=== PATIENT | male | born 1960 | race Caucasian/White ===

== ENCOUNTER 2017-04-06 08:21 | Emergency (ER) | payer OTHER ==
[~2017-04-06 08:21] MED LIST: ASPI-630 PO; FISH12002 PO; humalog
[2017-04-06] MEDS ORDERED: ONDANSETRON PF 4 MG/2 ML VIAL. ONE (08:30)
[2017-04-06] MEDS ORDERED: MORPHINE SULFATE 4 MG/ML DISP.SYRIN. ONE (08:32)
[2017-04-06] MEDS ORDERED: IPRATRPIUM/ALBUTEROL 0.5/2.5MG 3 ML NEBU. ONE (08:32)
[2017-04-06] MEDS: NITROGLYCERIN SUBLINGUAL 0.4 MG BOTTLE OF 25. SL PRN ×3 (08:33→08:57)
[2017-04-06] MEDS ORDERED: methylPREDNISolone SOD SUCC PF 125 MG/2 ML VIAL. ONE (08:33)
[2017-04-06] MEDS ORDERED: ASPIRIN 81 MG TAB.CHEW ONE (08:34)
[2017-04-06] MEDS: MORPHINE SULFATE 4 MG/ML DISP.SYRIN. IV/SQ PRN ×2 (08:35→09:05)
[2017-04-06 08:47] LABS: BASO # 0.1 x10^3/uL (0.0-0.2); BASO % 1 % (0-3); EOS # 0.3 x10^3/uL (0.0-0.7); EOS % 2 % (0-3); HEMATOCRIT 46.9 % (39.0-53.0); HEMOGLOBIN 15.8 g/dL (13.0-17.5); LYMPH # 5.1 x10^3/uL (1.0-4.8); LYMPH % 41 % (24-48); MEAN CORPUSCULAR HEMOGLOBIN 30 pg (25-35); MEAN CORPUSCULAR HGB CONC 34 g/dL (31-37); MEAN CORPUSCULAR VOLUME 88 fL (79-100); MONO # 1.1 x10^3/uL (0.0-1.1); MONO % 9 % (0-9); NEUT % 48 % (31-73); PLATELET COUNT 214 x10^3/uL (140-400); RED CELL DISTRIBUTION WIDTH 14.5 % (11.5-14.5); WHITE BLOOD COUNT 12.5 x10^3/uL (4.0-11.0)
[2017-04-06] MEDS ORDERED: ONDANSETRON PF 4 MG/2 ML VIAL. IV ONE (09:00)
[2017-04-06] MEDS ORDERED: methylPREDNISolone SOD SUCC PF 125 MG/2 ML VIAL. IV ONE (09:00)
[2017-04-06] MEDS ORDERED: ASPIRIN 81 MG TAB.CHEW PO ONE (09:00)
[2017-04-06] MEDS ORDERED: IPRATRPIUM/ALBUTEROL 0.5/2.5MG 3 ML NEBU. NEB ONE (09:00)
[2017-04-06] MEDS ORDERED: LORazepam 2 MG/ML VIAL IV ONE (09:00)
--- NOTE | 2017-04-06 09:00 | PHYS DOC ---
General Chief Complaint: CHEST PAIN Stated Complaint: CHEST PAIN Time Seen by MD: 08:31 Source: patient, old records Exam Limitations: other (vague historian) Problems: History of Present Illness Initial Comments Pt is 56/M h/o IDDM and CAD to ED POV with chest pain complaints. Pt states he was awakened approximately 0740 this morning with upper back and neck "cramping," diaphoresis, nausea, chest tightness and dyspnea. Although he's nauseous, he denies emesis/diarrhea or other GI symptoms. No specific chest pain complaints, no exacerbating or relieving factors noted. No travel or bad food exposure, no recent cough/fever/illness, pt went to bed feeling well. No relief with NTG SL x 3 in ED, pt did have improvement/resolution of symptoms with morphine 4mg IV x 2 and lorazepam 0.5mg IV Pt follows with ear specialist at [facility], doesn't know last HbA1c Pt had cardiac stent placed approximately 10 years ago at [facility], cannot recall name of doctor or last cardiac testing. No PCP Averages 2PPD cigarettes. Pt is very anxious on arrival and vague historian. Timing/Duration: 1 hour Severity: severe Associated Symptoms: diaphoresis, malaise, nausea/vomiting, shortness of breath , weakness Allergies: Coded Allergies: No Known Drug Allergies (Unverified , 01/09/16) Past Medical History Medical History: diabetes, heart disease, high cholesterol Surgical History: appendectomy (cardiac stent 10 years ago) Social History Smoker: cigarettes Alcohol: occasionally Drugs: none Review of Systems Constitutional: see HPI, denies fever Respiratory: denies cough, denies orthopnea, shortness of breath, wheezing Cardiovascular: denies chest pain, denies palpitations, denies syncope Gastrointestinal: denies abdominal pain, denies diarrhea, nausea, denies vomiting Genitourinary: denies dysuria, denies frequency, denies hematuria Musculoskeletal: see HPI Physical Exam General Appearance: WD/WN, severe distress Eyes: bilateral eye normal inspection, bilateral eye PERRL, bilateral eye EOMI Ear, Nose, Throat: hearing grossly normal, normal ENT inspection, normal pharynx Neck: non-tender, supple Respiratory: chest non-tender, no respiratory distress, other (coarse BS w/ wheezes diffusely, good air movement) Cardiovascular: normal peripheral pulses, bradycardia Gastrointestinal: normal bowel sounds, non tender, soft Back: no CVA tenderness, no vertebral tenderness Extremities: non-tender, normal inspection, no pedal edema Neurologic/Psychiatric: 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 He is more relaxed, more calm, says he is starting to feel better. SO at bedside, she advises that pt had 1 stent placed about 10 years ago. Neither she nor pt can recall [employer] name currently. PATIENT: RANDY COSTA ACCOUNT: [id number] : 1960 LOCATION: ER AGE: 56 SEX: M EXAM STATUS: REG ER ORD. PHYSICIAN: PAPO MARRERO DO REASON: cp PROCEDURE: PORTABLE CHEST 1V AP portable chest radiograph 04/06/2017 Clinical History: Chest pain for one day. An AP portable erect digital radiograph of the chest was obtained. Comparison study is dated 01/09/2009. The cardiac silhouette is normal in size. The thoracic aorta is mildly tortuous. No acute pulmonary infiltrate is seen. No pleural effusion or pneumothorax is noted. Mild degenerative changes are seen involving the thoracic spine and both shoulders. Impression: No acute abnormality is seen. DICTATED AND SIGNED BY: ARIELA JACKSON MD DATE: 04/06/17 0854 CC: PCP,NO; PAOP MARRERO DO ~ 0915: Pt reports cramping/tightness symptoms have resolved. His only complaint is "I feel tired." No more nausea/pain/sob/diaphoresis, resting comfortably. glucose elevated, unremarkable labs urine remains pending Trop I 0.0. 0941: Pt discussed with Dr Garcia, due to his history/severity of symptoms/ EKG changes he requests pt be transferred to [facility] admitted to hospitalist. 0952: Pt discussed with Dr Kearns who accepts telemetry admission. She requests lovenox anticoagulation. Departure Time of Disposition: 10:01 Disposition: 02 XFER SHT-TRM HOSP Diagnosis: chest pain, DM, tobaccoism, h/o CAD Condition: IMPROVED Additional Instructions: EMS transfer to [facility] for telemetry admission Dr Kearns is accepting Dr Garcia to be consulted. PAPO MARRERO DO Apr 06, 2017 09:00
--- NOTE | 2017-04-06 09:13 | EKG ---
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
[2017-04-06 09:26] LABS: ALBUMIN 3.7 g/dL (3.4-5.0); ALBUMIN/GLOBULIN RATIO 1.4 (1.0-1.7); CALCIUM 8.2 mg/dL (8.5-10.1); CREATININE 0.9 mg/dL (0.7-1.3); GFR 87.3; MAGNESIUM 1.8 mg/dL (1.8-2.4); POTASSIUM 3.8 mmol/L (3.5-5.1); TOTAL BILIRUBIN 0.4 mg/dL (0.2-1.0); TOTAL PROTEIN 6.4 g/dL (6.4-8.2)
[2017-04-06] MEDS ORDERED: ENOXAPARIN ** NOTE DOSE ** SYRINGE SQ ONE (10:15)
[2017-04-06 10:22] LABS: AMPHETAMINE/METHAMPHETAMINE NEG (NEG); BARBITURATES NEG (NEG); BENZODIAZEPINES NEG (NEG); CANNABINOIDS NEG (NEG); COCAINE NEG (NEG); METHADONE NEG (NEG); OPIATES POS (NEG); PHENCYCLIDINE NEG (NEG)
[2017-04-06 10:25] LABS: BILIRUBIN,URINE NEG (NEG); CLARITY,URINE HAZY; COLOR,URINE YELLOW; GLUCOSE,URINE >=1000 mg/dL (NEG)
[2017-04-06 10:26] LABS: BACTERIA,URINE 0 /HPF (0-FEW); NITRITE,URINE NEG (NEG); RBC,URINE 0 /HPF (0-2); SQUAMOUS EPITHELIAL CELL,UR OCC /LPF; UROBILINOGEN,URINE 0.2 mg/dL (0.2 mg/dL)
[2017-04-06 10:50] VITALS: BP 152/93
== END 2017-04-06 11:10 | disposition short-term general hospital (02) ==
LOC: ER 08:21
DX: R07.89 Other chest pain (principal); M54.89 Other dorsalgia; M54.2 Cervicalgia; E11.9 Type 2 diabetes mellitus without complications; I25.10 Atherosclerotic heart disease of native coronary artery without angina pectoris; F17.210 Nicotine dependence, cigarettes, uncomplicated; E78.00 Pure hypercholesterolemia, unspecified
CPT/HCPCS: 36415; 71010; 80053; 80307; 81001; 82550; 83690; 83735; 83880; 84484; 85025; 85379; 85610; 85730; 87086; 93005; 94640; 96372; 96374; 96375; 99285; G0480; J1650; J2060; J2270; J2405; J2930; J7620; G0479

== ENCOUNTER 2019-06-23 11:34 | Emergency (ER) | payer OTHER ==
[~2019-06-23] VITALS: Ht 175.3 cm; Wt 70.3 kg
[2019-06-23] MEDS ORDERED: IV NORMAL SALINE 1,000ML 1,000 ML IV SCH (11:47)
[2019-06-23 12:04] LABS: BASO # 0.1 x10^3/uL (0.0-0.2); BASO % 1 % (0-3); EOS % 0 % (0-3); HEMATOCRIT 51.8 % (39.0-53.0); HEMOGLOBIN 17.1 g/dL (13.0-17.5); LYMPH # 1.6 x10^3/uL (1.0-4.8); LYMPH % 14 % (24-48); MEAN CORPUSCULAR HEMOGLOBIN 31 pg (25-35); MEAN CORPUSCULAR HGB CONC 33 g/dL (31-37); MEAN CORPUSCULAR VOLUME 94 fL (79-100); MONO # 0.4 x10^3/uL (0.0-1.1); MONO % 3 % (0-9); NEUT # 9.6 x10^3uL (1.8-7.7); NEUT % 82 % (31-73); PLATELET COUNT 293 x10^3/uL (140-400); RED BLOOD COUNT 5.51 x10^6/uL (4.30-5.70); RED CELL DISTRIBUTION WIDTH 13.5 % (11.5-14.5); WHITE BLOOD COUNT 11.7 x10^3/uL (4.0-11.0)
[2019-06-23 12:14] LABS: ALBUMIN 4.8 g/dL (3.4-5.0); ALBUMIN/GLOBULIN RATIO 1.4 (1.0-1.7); CALCIUM 9.5 mg/dL (8.5-10.1); CREATININE 1.4 mg/dL (0.7-1.3); GFR 52.1; MAGNESIUM 1.9 mg/dL (1.8-2.4); POTASSIUM 5.6 mmol/L (3.5-5.1); TOTAL BILIRUBIN 0.7 mg/dL (0.2-1.0); TOTAL PROTEIN 8.2 g/dL (6.4-8.2)
[2019-06-23] MEDS ORDERED: ASPIRIN 81 MG TAB.CHEW PO ONE (12:30)
[2019-06-23 12:39] VITALS: BP 160/82
[2019-06-23] MEDS ORDERED: IV NORMAL SALINE 1,000ML 1,000 ML IV ONE (12:45)
[2019-06-23] MEDS ORDERED: DEXTROSE 50% 25 GM / 50ML DISP.SYRIN. IV PRN (12:45)
[2019-06-23] MEDS ORDERED: INSULIN REGULAR VIAL 150 UNIT in 0.9 % SODIUM CHLORIDE 150ML 150 ML IV PRN (12:45)
[2019-06-23 12:57] LABS: CLARITY,URINE HAZY; COLOR,URINE YELLOW; GLUCOSE,URINE 500 mg/dL (NEG)
[2019-06-23 12:58] LABS: BACTERIA,URINE 0 /HPF (0-FEW); BILIRUBIN,URINE NEG (NEG); HYALINE CASTS, URINE FEW /HPF; NITRITE,URINE NEG (NEG); SQUAMOUS EPITHELIAL CELL,UR FEW /LPF; UROBILINOGEN,URINE 0.2 mg/dL (0.2 mg/dL); WBC,URINE 20-40 /HPF (0-4)
--- NOTE | 2019-06-23 13:06 | PHYS DOC ---
Past History Past Medical History: CAD, Diabetes, High Cholesterol, Hypertension Past Surgical History: Other Additional Past Surgical Histo: HEART STENT Smoking: Cigarettes Additional Smoking Information: One pack per day Alcohol Use: None Drug Use: None Adult General Chief Complaint Chief Complaint: HYPERGLYCEMIA HPI HPI Patient is a 58-year-old male presents with weakness, dry mouth, headache, and malaise. This has been going on for the past 4-5 days. Patient has had complications with his insulin pump starting 5 days ago, was expecting a new one to arrived by today, and the new model does not connect with his other supplies. He denies worst headache of life, change in vision, or photophobia. No fever. No nausea or vomiting. There has been frequent urination as well as increased thirst. Symptoms are moderate in intensity. He denies any chest pain or palpitations.[] Review of Systems Review of Systems Constitutional: Denies fever or chills [] Eyes: Denies change in visual acuity, redness, or eye pain [] HENT: Denies nasal congestion or sore throat [] Respiratory: Denies cough or shortness of breath [] Cardiovascular: No chest pain or palpitations[] GI: Denies abdominal pain, nausea, vomiting, bloody stools or diarrhea [] : Denies dysuria or hematuria [] Musculoskeletal: Denies back pain or joint pain [] Integument: Denies rash or skin lesions [] Neurologic: Denies focal weakness or sensory changes, see history of present illness [] Endocrine: See history of present illness[] All other systems were reviewed and found to be within normal limits, except as documented in this note. Allergies Allergies Allergies Coded Allergies Type Severity Reaction Last Updated Verified No Known Drug Allergies 06/23/19 No Physical Exam Physical Exam Constitutional: Well developed, well nourished, no acute distress, non-toxic appearance. [] HENT: Normocephalic, atraumatic, bilateral external ears normal, oropharynx moist, no oral exudates, nose normal. [] Eyes: PERRLA, EOMI, conjunctiva normal, no discharge. [] Neck: Normal range of motion, no tenderness, supple, no stridor. [] Cardiovascular:Heart rate regular rhythm, no murmur [] Lungs & Thorax: Bilateral breath sounds clear to auscultation [] Abdomen: Bowel sounds normal, soft, no tenderness, no masses, no pulsatile masses. [] Skin: Warm, dry, no erythema, no rash. [] Back: No tenderness, no CVA tenderness. [] Extremities: No tenderness, no cyanosis, no clubbing, ROM intact, no edema. [] Neurologic: Alert and oriented X 3, normal motor function, normal sensory function, no focal deficits noted. [] Psychologic: Affect normal, judgement normal, mood normal. [] Current Patient Data Vital Signs Vital Signs Date Time Temp Pulse Resp B/P (MAP) Pulse Ox O2 Delivery O2 Flow Rate FiO2 06/23/19 11:45 97.7 111 18 100 Room Air EKG EKG EKG shows a sinus rhythm at 95 bpm, left axis, QTC of 12/13/27 milliseconds, no ST elevations. Peaked T waves in V3. When compared with EKGs of 04/06/2017 and 06/02/2019, other than noted peaked T wave no other acute EKG changes are noted. This was interpreted by me at 1159. Repeat EKG obtained at 1550 shows a sinus rhythm at 76 bpm, improvement of the peaked T waves. Left axis, no ST elevation. Interpreted by me at 1552[] Radiology/Procedures Radiology/Procedures Chest x-ray shows no infiltrate, no effusion, no pneumothorax[] Course & Med Decision Making Course & Med Decision Making Pertinent Labs and Imaging studies reviewed. (See chart for details) ED course: Patient arrived, was placed in bed, and tolerated exam well. IV access was established, laboratory samples were sent for analysis, and IV fluids were started. After the first liter of saline was infused, his repeat blood sugar was down to 320s. Cardiac enzymes came back being elevated, and he was administered aspirin. Discussion was made with the patient for need for admission. Due to insurance, contact was made with [facility] for transfer. His instructor dancing is Dr. To at [facility]. Dr. Will graciously accepted him for transfer. After the patient was accepted, it was then noted he had significant number of white cells in his urine so IV antibiotics were started to cover for urinary tract infection. 1535: Patient reports having some epigastric pain. Repeat EKG and Maalox ordered. Repeat EKG findings are noted above. Repeat cardiac enzymes are pe nding. Medical decision making: Patient with DKA, most likely due to a lack of insulin. However his cardiac enzymes are elevated which may be due to renal insufficiency given an elevated creatinine at 1.4. He is mildly hyperkalemic which will most likely improve with hydration as well as insulin. He also appears to have urinary tract infection, no evidence of pyelonephritis on exa m.[] Dragon Disclaimer Dragon Disclaimer This electronic medical record was generated, in whole or in part, using a voice recognition dictation system. Departure Departure: Impression: Primary Impression: Diabetic ketoacidosis Additional Impressions: Elevated troponin Renal insufficiency Urinary tract infection Disposition: 05 TRANSFER OTHER Condition: IMPROVED Referrals: PCP,NO (PCP) Problem Qualifiers Primary Impression: Diabetic ketoacidosis Diabetes mellitus complication detail: without coma Additional Impressions: Urinary tract infection Urinary tract infection type: site unspecified Hematuria presence: without hematuria Qualified Codes: N39.0 - Urinary tract infection, site not specified DAVID AUGUSTINE DO Jun 23, 2019 13:06
--- NOTE | 2019-06-23 13:08 | RAD ---
Portable chest x-ray compared to similar examination dated April 06, 2017 for weakness, diabetic ketoacidosis, elevated troponins. FINDINGS: Lungs are hyperinflated. No definite areas of pneumonic consolidation, pneumothorax, pleural effusion, or evidence of overt congestive heart failure. Calcifications along the left lung base may represent pleural or dystrophic soft tissue calcifications but are of doubtful clinical significance. Heart size within normal limits. No significant osseous anomalies. IMPRESSION: 1. No definite acute cardiopulmonary abnormality. Electronically signed by: Thanh Cannon MD (06/23/2019 1:05 PM) [id number]
--- NOTE | 2019-06-23 15:00 | EKG ---
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
[2019-06-23] MEDS ORDERED: cefTRIAXone SODIUM 1 GM VIAL ONE (15:24)
[2019-06-23] MEDS ORDERED: IV NORMAL SALINE 50ML 50 ML ONE (15:24)
[2019-06-23] MEDS ORDERED: MAG HYDROX/AL HYDROX/SIMETH 30 ML ORAL.SUSP PO ONE (15:45)
--- NOTE | 2019-06-23 15:53 | EKG ---
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
== END 2019-06-23 16:35 | disposition short-term general hospital (02) ==
LOC: ER 11:34
DX: E11.10 Type 2 diabetes mellitus with ketoacidosis without coma (principal); N28.9 Disorder of kidney and ureter, unspecified; N39.0 Urinary tract infection, site not specified; R79.89 Other specified abnormal findings of blood chemistry; I25.10 Atherosclerotic heart disease of native coronary artery without angina pectoris; E78.00 Pure hypercholesterolemia, unspecified; I10 Essential (primary) hypertension; F17.210 Nicotine dependence, cigarettes, uncomplicated
CPT/HCPCS: 36415; 71045; 80053; 81001; 82010; 82947; 83735; 84484; 85025; 87086; 93005; 96365; 96366; 96368; 99285; J0696; J1815; J7030